=== PATIENT | male | born 1950 | race Caucasian/White ===

== ENCOUNTER 2019-04-16 10:26 | Inpatient (IN) | payer MEDICARE, MEDICAID ==
[2019-04-16 12:38] LABS: ADD MAN DIFF? NO
[2019-04-16] MEDS: ACETAMINOPHEN 325 MG TAB PO (12:41)
[2019-04-16] MEDS: CEFEPIME 2GM/50 ML (PMX) 50 ML IVPB (12:42)
[2019-04-16] MEDS: SODIUM CHLORIDE 0.9% 1L BAG IV* (12:42)
[2019-04-16 12:44] LABS: WHITE BLOOD COUNT 7.6 10^3/ul (4.8-10.8)
[2019-04-16 12:44] LABS: ABNORMAL IP MESSAGE 1; BASOPHIL # 0.1 10^3/ul (0.0-0.1); BASOPHILS % 0.9 % (0.0-2.0); EOSINOPHILS # 0.1 10^3/ul (0.0-0.5); EOSINOPHILS % 1.9 % (0.0-7.0); HEMATOCRIT 39.6 % (42.0-52.0); HEMOGLOBIN 12.8 g/dl (14.0-18.0); LYMPHOCYTES # 0.5 10^3/ul (0.8-2.9); LYMPHOCYTES % 6.2 % (15.0-51.0); MEAN CORPUSCULAR HEMOGLOBIN 32.7 pg (29.0-33.0); MEAN CORPUSCULAR HGB CONC 32.3 g/dl (32.0-37.0); MEAN CORPUSCULAR VOLUME 101.3 fl (82.0-101.0); MEAN PLATELET VOLUME 12.4 fl (7.4-10.4); MONOCYTE # 0.9 10^3/ul (0.3-0.9); MONOCYTES % 11.4 % (0.0-11.0); NEUTROPHILS % 79.2 % (39.0-77.0); PLATELET COUNT 94 10^3/UL (140-415); POSITIVE DIFF @See below; RED BLOOD COUNT 3.91 10^6/ul (4.70-6.10); RED CELL DISTRIBUTION WIDTH 15.6 % (11.5-14.5)
[2019-04-16 13:02] LABS: ALANINE AMINOTRANSFERASE 32 IU/L (13-69); ALBUMIN 4.7 g/dl (3.3-4.9); ALBUMIN/GLOBULIN RATIO 1.27; ALKALINE PHOSPHATASE 130 IU/L (42-121); ANION GAP 19 (5-13); ASPARTATE AMINO TRANSFERASE 38 IU/L (15-46); BILIRUBIN,INDIRECT 0.4 mg/dl (0-1.1); BILIRUBIN,TOTAL 0.4 mg/dl (0.2-1.3); BLOOD UREA NITROGEN 65 mg/dl (7-20); CALCIUM 8.4 mg/dl (8.4-10.2); CARBON DIOXIDE 28 mmol/L (21-31); CHLORIDE 96 mmol/L (97-110); CREATININE 10.13 mg/dl (0.61-1.24); Estimated GFR 5 mL/min (>60); GLUCOSE 165 mg/dl (70-220); POTASSIUM 5.3 mmol/L (3.5-5.1); SODIUM 143 mmol/L (135-144); TOTAL PROTEIN 8.4 g/dl (6.1-8.1)
[2019-04-16 13:05] LABS: PROTIME 13.3 Sec (11.9-14.9)
[2019-04-16 13:06] LABS: PARTIAL THROMBOPLASTIN TIME 34.3 Sec (23.0-35.0)
[2019-04-16 13:17] LABS: TROPONIN-I 0.129 ng/ml (0.000-0.120)
[2019-04-16] MEDS: VANCOMYCIN 1 GM (PMX) 250 ML IVPB (13:21)
[2019-04-16] MEDS ORDERED: NACL 0.9% 3 ML SYG IV (14:00)
[2019-04-16] MEDS ORDERED: morphine 2 MG INJ IV (14:00)
[2019-04-16] MEDS ORDERED: NITROGLYCERIN (SL) 0.4 MG TAB SL (14:00)
[2019-04-16] MEDS ORDERED: hydrALAzine 20 MG INJ IV (14:00)
[2019-04-16] MEDS ORDERED: MAGNESIUM HYDROXIDE 30ML CUP PO (14:00)
[2019-04-16] MEDS ORDERED: ALBUTEROL/IPRATROPIUM (NEB) 3 ML AMP HHN (14:00)
[2019-04-16] MEDS ORDERED: DOCUSATE SODIUM 100 MG CAP PO (14:00)
[2019-04-16] MEDS ORDERED: LORAZEPAM 2 MG INJ IV (14:00)
[2019-04-16] MEDS ORDERED: ONDANSETRON 4 MG INJ IV ×2 (14:00)
[2019-04-16] MEDS ORDERED: ACETAMINOPHEN 325 MG TAB PO ×2 (14:00)
[2019-04-16] MEDS: HYDROCODONE/APAP (5/325) TAB PO ×2 (14:24→22:57)
[2019-04-16 15:01] LABS: HAAIG REFLEX REFLEX FILED
[2019-04-16 15:22] LABS: CREATINE KINASE 129 IU/L (23-200)
[2019-04-16 15:26] LABS: ETHANOL < 10.0 mg/dl (0-0)
[2019-04-16 15:35] LABS: CK INDEX 1.4; CK-MB 1.76 ng/ml (0.0-2.4); TROPONIN-I 0.108 ng/ml (0.000-0.120)
[2019-04-16 15:52] LABS: FREE T4 (FREE THYROXINE) 1.95 ng/dl (0.78-2.44)
[2019-04-16] MEDS ORDERED: GLUCOSE GEL 15 GRAM TUBE BUCCAL (16:00)
[2019-04-16] MEDS ORDERED: GLUCOSE GEL 15 GRAM TUBE PO ×2 (16:00)
[2019-04-16] MEDS ORDERED: GLUCAGON 1 MG INJ IM (16:00)
[2019-04-16] MEDS ORDERED: DEXTROSE 50% 50 ML SYRINGE IV ×2 (16:00)
[2019-04-16 16:07] LABS: HEPATITIS B SURFACE ANTIGEN NEGATIVE (NEGATIVE)
[2019-04-16 16:25] LABS: HEPATITIS B CORE ANTIBODY NEGATIVE (NEGATIVE); HEPATITIS C VIRAL ANTIBODY NEGATIVE (NEGATIVE)
[2019-04-16] MEDS: INSULIN ASPART [NOVOLOG] 3 ML PEN SC ×2 (17:00→21:00)
[2019-04-16] MEDS: ATORVASTATIN 10 MG TAB PO (20:59)
[2019-04-16] MEDS: LEVOFLOXACIN 750MG/D5W (PMX) 150 ML IVPB (21:00)
[2019-04-16] MEDS: SEVELAMER CARBONATE 2.4 GM PKT PO (21:00)
[2019-04-16 21:13] LABS: CREATINE KINASE 136 IU/L (23-200)
[2019-04-16 21:13] LABS: LACTIC ACID 1.6 mmol/L (0.5-2.0)
[2019-04-16 21:23] LABS: CK INDEX 1.6; CK-MB 2.11 ng/ml (0.0-2.4)
[2019-04-16 21:29] LABS: TROPONIN-I 0.182 ng/ml (0.000-0.120)
[2019-04-17] MEDS: INSULIN ASPART [NOVOLOG] 3 ML PEN SC ×3 (01:00→08:18)
[2019-04-17] MEDS: PANTOPRAZOLE (EC) 40 MG TAB PO (06:40)
[2019-04-17] MEDS: LEVOTHYROXINE 100 MCG TAB PO (06:40)
[2019-04-17 08:15] LABS: ADD MAN DIFF? NO
[2019-04-17] MEDS: ASPIRIN (EC) 325 MG TAB PO (08:16)
[2019-04-17] MEDS: SEVELAMER CARBONATE 2.4 GM PKT PO ×3 (08:16→17:25)
[2019-04-17 08:21] LABS: ABNORMAL IP MESSAGE 1; BASOPHILS % 0.7 % (0.0-2.0); EOSINOPHILS # 0.1 10^3/ul (0.0-0.5); EOSINOPHILS % 1.8 % (0.0-7.0); HEMATOCRIT 37.2 % (42.0-52.0); HEMOGLOBIN 11.9 g/dl (14.0-18.0); LYMPHOCYTES # 0.5 10^3/ul (0.8-2.9); LYMPHOCYTES % 11.3 % (15.0-51.0); MEAN CORPUSCULAR HEMOGLOBIN 32.5 pg (29.0-33.0); MEAN CORPUSCULAR VOLUME 101.6 fl (82.0-101.0); MEAN PLATELET VOLUME 12.3 fl (7.4-10.4); MONOCYTE # 0.8 10^3/ul (0.3-0.9); NEUTROPHIL # 3.1 10^3/ul (1.6-7.5); PLATELET COUNT 83 10^3/UL (140-415); POSITIVE DIFF @See below; RED BLOOD COUNT 3.66 10^6/ul (4.70-6.10); RED CELL DISTRIBUTION WIDTH 15.7 % (11.5-14.5)
[2019-04-17 08:21] LABS: WHITE BLOOD COUNT 4.5 10^3/ul (4.8-10.8)
[2019-04-17 08:59] LABS: ANION GAP 13 (5-13); BLOOD UREA NITROGEN 38 mg/dl (7-20); CALCIUM 7.9 mg/dl (8.4-10.2); CARBON DIOXIDE 29 mmol/L (21-31); CHLORIDE 97 mmol/L (97-110); CREATININE 6.84 mg/dl (0.61-1.24); Estimated GFR 8 mL/min (>60); GLUCOSE 175 mg/dl (70-220); SODIUM 139 mmol/L (135-144)
[2019-04-17 09:09] LABS: CHOLESTEROL 115 mg/dl (100-200)
[2019-04-17 09:09] LABS: CHOL/HDL RATIO 2.8 RATIO; HDL CHOLESTEROL 40 mg/dl (30-78); LDL CHOLESTEROL,CALCULATED 55 mg/dl; TRIGLYCERIDES 100 mg/dl (0-149)
[2019-04-17 09:41] LABS: THYROID STIMULATING HORMONE 0.149 MIU/L (0.465-4.680)
[2019-04-17 10:18] LABS: HEMOGLOBIN A1C 6.9 % (0-5.9)
[2019-04-17] MEDS ORDERED: INSULIN ASPART [NOVOLOG] 3 ML PEN SC (11:20)
[2019-04-17] MEDS: Insulin NOVOLOG SS MILD Algorithm (SS with meals and bedtime) SC ×3 (11:20→20:17)
[2019-04-17] MEDS: LISINOPRIL 20 MG TAB PO (14:41)
[2019-04-17] MEDS ORDERED: SEVELAMER CARBONATE 0.8 GM PKT PO (17:55)
[2019-04-17] MEDS: ATORVASTATIN 10 MG TAB PO (20:29)
[2019-04-18] MEDS: HYDROCODONE/APAP (5/325) TAB PO (04:04)
[2019-04-18] MEDS: LEVOTHYROXINE 100 MCG TAB PO (06:34)
[2019-04-18] MEDS: PANTOPRAZOLE (EC) 40 MG TAB PO (06:34)
[2019-04-18 06:53] LABS: ADD MAN DIFF? NO
[2019-04-18 07:03] LABS: WHITE BLOOD COUNT 3.8 10^3/ul (4.8-10.8)
[2019-04-18 07:03] LABS: ABNORMAL IP MESSAGE 1; BASOPHILS % 1.1 % (0.0-2.0); EOSINOPHILS # 0.1 10^3/ul (0.0-0.5); EOSINOPHILS % 2.9 % (0.0-7.0); HEMATOCRIT 35.9 % (42.0-52.0); HEMOGLOBIN 11.6 g/dl (14.0-18.0); LYMPHOCYTES # 0.9 10^3/ul (0.8-2.9); LYMPHOCYTES % 22.5 % (15.0-51.0); MEAN CORPUSCULAR HGB CONC 32.3 g/dl (32.0-37.0); MEAN PLATELET VOLUME 12.6 fl (7.4-10.4); MONOCYTE # 0.8 10^3/ul (0.3-0.9); MONOCYTES % 19.8 % (0.0-11.0); NEUTROPHILS % 53.4 % (39.0-77.0); PLATELET COUNT 97 10^3/UL (140-415); POSITIVE DIFF @See below; RED BLOOD COUNT 3.52 10^6/ul (4.70-6.10); RED CELL DISTRIBUTION WIDTH 15.3 % (11.5-14.5)
[2019-04-18 07:22] LABS: ANION GAP 14 (5-13); BLOOD UREA NITROGEN 59 mg/dl (7-20); CARBON DIOXIDE 28 mmol/L (21-31); CHLORIDE 95 mmol/L (97-110); CREATININE 8.91 mg/dl (0.61-1.24); Estimated GFR 6 mL/min (>60); GLUCOSE 129 mg/dl (70-220); SODIUM 137 mmol/L (135-144)
[2019-04-18] MEDS: Insulin NOVOLOG SS MILD Algorithm (SS with meals and bedtime) SC ×4 (07:22→21:40)
[2019-04-18 07:34] LABS: POTASSIUM 5.5 mmol/L (3.5-5.1)
[2019-04-18 07:37] LABS: TROPONIN-I 0.204 ng/ml (0.000-0.120)
[2019-04-18] MEDS: ASPIRIN (EC) 81 MG TAB PO (08:17)
[2019-04-18] MEDS: SEVELAMER CARBONATE 2.4 GM PKT PO ×3 (08:17→18:55)
[2019-04-18] MEDS: MULTIVIT/CA CARB/B CMPLX/FA TAB PO (08:17)
[2019-04-18] MEDS: LISINOPRIL 20 MG TAB PO (08:18)
[2019-04-18] MEDS ORDERED: NON-FORMULARY/PATIENT OWN MED ([Nephro-Vite] 1 TAB) PO (09:00)
[2019-04-18] MEDS: LEVOFLOXACIN 500MG/D5W (PMX) 100 ML IVPB (18:55)
[2019-04-18] MEDS: ATORVASTATIN 10 MG TAB PO (20:41)
[2019-04-19] MEDS: PANTOPRAZOLE (EC) 40 MG TAB PO (06:10)
[2019-04-19] MEDS: LEVOTHYROXINE 100 MCG TAB PO (06:10)
[2019-04-19] MEDS: Insulin NOVOLOG SS MILD Algorithm (SS with meals and bedtime) SC ×2 (07:25→11:29)
[2019-04-19 07:31] LABS: ADD MAN DIFF? NO
[2019-04-19 07:38] LABS: WHITE BLOOD COUNT 3.2 10^3/ul (4.8-10.8)
[2019-04-19 07:38] LABS: BASOPHILS % 1.2 % (0.0-2.0); EOSINOPHILS # 0.1 10^3/ul (0.0-0.5); EOSINOPHILS % 3.4 % (0.0-7.0); HEMATOCRIT 37.2 % (42.0-52.0); HEMOGLOBIN 11.9 g/dl (14.0-18.0); LYMPHOCYTES # 0.7 10^3/ul (0.8-2.9); LYMPHOCYTES % 22.9 % (15.0-51.0); MEAN CORPUSCULAR HEMOGLOBIN 32.3 pg (29.0-33.0); MEAN CORPUSCULAR VOLUME 101.1 fl (82.0-101.0); MEAN PLATELET VOLUME 12.2 fl (7.4-10.4); MONOCYTE # 0.5 10^3/ul (0.3-0.9); MONOCYTES % 16.7 % (0.0-11.0); NEUTROPHIL # 1.8 10^3/ul (1.6-7.5); NEUTROPHILS % 55.5 % (39.0-77.0); PLATELET COUNT 113 10^3/UL (140-415); RED BLOOD COUNT 3.68 10^6/ul (4.70-6.10); RED CELL DISTRIBUTION WIDTH 15.1 % (11.5-14.5)
[2019-04-19] MEDS: SEVELAMER CARBONATE 2.4 GM PKT PO ×3 (07:55→12:24)
[2019-04-19 08:09] LABS: ANION GAP 12 (5-13); BLOOD UREA NITROGEN 37 mg/dl (7-20); CARBON DIOXIDE 30 mmol/L (21-31); CHLORIDE 97 mmol/L (97-110); CREATININE 6.64 mg/dl (0.61-1.24); Estimated GFR 8 mL/min (>60); GLUCOSE 112 mg/dl (70-220); POTASSIUM 4.9 mmol/L (3.5-5.1); SODIUM 139 mmol/L (135-144)
[2019-04-19] MEDS: LISINOPRIL 20 MG TAB PO ×2 (09:00→10:55)
[2019-04-19] MEDS: ASPIRIN (EC) 81 MG TAB PO (10:55)
[2019-04-19] MEDS: MULTIVIT/CA CARB/B CMPLX/FA TAB PO (10:55)
== END 2019-04-19 16:00 | disposition home or self-care (01) | DRG 193 ==
LOC: E/R 10:26 → TEL 13:56
PROC: 5A1D70Z Performance of Urinary Filtration, Intermittent, Less than 6 Hours Per Day (ICD-10-PCS; principal; 2019-04-16)
DX: J18.9 Pneumonia, unspecified organism (principal); N18.6 End stage renal disease; I21.A1 Myocardial infarction type 2; I12.0 Hypertensive chronic kidney disease with stage 5 chronic kidney disease or end stage renal disease; R65.10 Systemic inflammatory response syndrome (SIRS) of non-infectious origin without acute organ dysfunction; E87.70 Fluid overload, unspecified; E11.22 Type 2 diabetes mellitus with diabetic chronic kidney disease; Z99.2 Dependence on renal dialysis; E87.5 Hyperkalemia; D69.6 Thrombocytopenia, unspecified; E03.9 Hypothyroidism, unspecified; Z87.891 Personal history of nicotine dependence; R07.2 Precordial pain; D64.9 Anemia, unspecified
CPT/HCPCS: 36415; 71045; 80048; 80053; 80061; 80307; 82550; 82553; 82962; 83036; 83605; 84439; 84443; 84484; 85025; 85610; 85730; 86704; 86709; 86803; 87040-91; 87081; 87340; 90935; 93005; 93306; 96374; 96375; 97161; 97167; 99285-25